=== PATIENT | male | born 1975 | race Caucasian/White ===

== ENCOUNTER → 2019-01-21 07:23 | Outpatient (CLI) | payer OTHER, SELFPAY ==
[2017-12-11 17:38] VITALS: BMI 31.1
[2019-01-21 08:14] LABS: Erythrocyte Sedimentation Rate 7 mm/hr (0-15)
[2019-01-21 08:15] LABS: Absolute Lymphocyte Count 2.55 X10^3/ul (0.83-4.51); Absolute Neutrophil Count 4.6 X10^3/uL (2.0-7.7); Basophil# 0.05 X10^3/uL; Basophil% 0.6 % (0-1); Eosinophil# 0.19 X10^3/uL; Eosinophils% 2.3 % (0-5); Hematocrit 48.1 % (40-54); Hemoglobin 16.2 g/dl (13.0-16.5); Lymphocyte # 2.55 X10^3/ul (4.0); Lymphocyte % 30.8 % (19-41); Mean Corp Hgb Conc 33.7 g/gl (32-36); Mean Corpuscular Hgb 31.1 pg (27.0-32.0); Mean Corpuscular Volume 92.3 fL (80-94); Mean Platelet Vol. 10.6 fl (6.2-12.0); Monocyte# 0.89 X10^3/uL; Monocyte% 10.8 % (0-10); Neutrophil # 4.57 X10^3/uL (2.7-7.7); Neutrophil % 55.3 % (47-70); Platelet Count 221 K/mm3 (150-450); RBC Distribution Width CV 12.7 % (11.6-14.6); RBC Distribution Width SD 42.4 fl (35.1-43.9); Red Blood Count 5.21 M/mm3 (4.6-6.2); White Blood Count 8.3 K/mm3 (4.4-11.0)
[2019-01-21 08:16] LABS: POSITIVE COUNT NO; POSITIVE DIFFERENTIAL NO; POSITIVE MORPHOLOGY NO
[2019-01-21 08:29] LABS: Anion Gap 5 (5-15); BUN 14 mg/dL (7-18); BUN/Creat Ratio 12.6 RATIO (10-20); CRP, High Sensitivity Cardiac 2.75 mg/L; Calcium,Total 8.9 mg/dL (8.5-10.1); Chloride 109 mmol/L (98-107); Creatinine, Serum 1.11 mg/dL (0.70-1.30); EST Glomerular Filtration Rate 77 mL/min (>60); Est Glom Filt Rate - Afr Amer 94 mL/min (>60); Glucose 119 mg/dL (74-106); Potassium 4.5 mmol/L (3.5-5.1); Sodium Level 142 mmol/L (136-145); Uric Acid 6.7 mg/dL (3.5-7.2)
[2019-01-22 15:18] LABS: ANTINUCLEAR ANTIBODIES DIRECT Positive (Negative)
[2019-01-29 16:46] LABS: HLA B27 Negative (.)
== END ==
PROVIDERS: Family Provider Family Medicine; PCP Family Medicine; Referring Provider Podiatrist; Visit Provider Podiatrist
DX: L40.8 Other psoriasis (principal); B35.1 Tinea unguium
CPT/HCPCS: 36415; 80048; 81374; 84550; 85025; 85652; 86038; 86141; 86431

== ENCOUNTER → 2021-12-25 | Outpatient (CLI) | payer OTHER, SELFPAY ==
--- NOTE | 2021-12-25 13:10 | RAD_ITS ---
STUDY: X-RAY - LEFT KNEE REASON FOR EXAM: Male, 46 years old. Pain. TECHNIQUE: 4 view(s) of the knee. COMPARISON: None. FINDINGS: Normal visualized distal femur. Normal visualized proximal tibia and fibula. Normal proximal tibiofibular articulation. Mild medial compartmental arthrosis. Normal lateral femorotibial compartment. Slight lateral tilt and subluxation of the patella with mild arthrosis of the lateral patellofemoral compartment. The soft tissue structures are unremarkable. RAD/Knee 4 or More Views IMPRESSION: Medial and lateral patellofemoral compartmental arthrosis as described. No acute abnormality or erosive changes. Electronically Signed: Dean Davies MD at 13:44 EDT ,
--- NOTE | 2021-12-25 13:10 | RAD_ITS ---
INDICATION: PAIN EXAMINATION/TECHNIQUE: X-RAY - RIGHT XR Knee Complete 4 Views or More 4 VIEWS COMPARISON: None. FINDINGS: No acute fracture or subluxation. Joint spaces are intact. No significant degenerative changes. Soft tissues are unremarkable. No significant joint effusion. RAD/Knee 4 or More Views IMPRESSION: No acute findings in the right knee. Electronically Signed: Williams Posada, at 15:55 EDT ,
--- NOTE | 2021-12-25 13:11 | RAD_ITS ---
STUDY: X-RAY CHEST REASON FOR EXAM: Male, 46 years old. Cough. TECHNIQUE: Frontal and lateral views of the chest. COMPARISON: None. FINDINGS: Linear opacities at both bases with no focal consolidation. Scattered healed parenchymal granulomatous calcifications. There is no demonstrated pleural abnormality. Normal size heart. Normal mediastinum and aundrea. Normal visualized pulmonary arteries. Normal visualized aortic arch and descending thoracic aorta. Normal visualized thoracic spine. Normal visualized ribs, clavicles, and shoulders. There is no demonstrated abnormality of the visualized soft tissue structures of the upper abdomen. RAD/Chest PA and Lateral IMPRESSION: No active or acute cardiopulmonary disease. Electronically Signed: Dean Davies MD at 13:43 EDT ,
== END | disposition home or self-care (01) ==
PROVIDERS: PCP Internal Medicine; Referring Provider Internal Medicine; Visit Provider Internal Medicine
DX: R05.9 Cough, unspecified (principal); M25.561 Pain in right knee; M25.562 Pain in left knee; S83.012A Lateral subluxation of left patella, initial encounter
CPT/HCPCS: 71046; 73564

== ENCOUNTER → 2023-01-25 | Outpatient (CLI) | payer OTHER, SELFPAY ==
--- NOTE | 2023-01-25 07:43 | US_ITS ---
STUDY: ABDOMINAL ULTRASOUND - RIGHT UPPER QUADRANT; ELASTOGRAPHY REASON FOR VISIT: Male, 47 years old. TECHNIQUE: Ultrasound evaluation of the right upper quadrant was performed with real-time and static ramirez-scale imaging. Point quantification shear wave elastography was performed (Leap). TECHNICAL QUALITY: Adequate. COMPARISON: None. FINDINGS: Liver: The liver is enlarged and measures 18.6 cm. There is increased echogenicity consistent with fatty infiltration. Focal fatty sparing is seen in the region of the gallbladder fossa. The bile ducts are within normal limits. There is hepatic color flow. The direction of portal flow is hepatopetal. There is no demonstrated mass lesion. Median liver stiffness measured 14.5 kPa. Gallbladder: Normal distended gallbladder. The gallbladder wall measures 2.6 mm. There is a negative sonographic Bran''s sign. There is no pericholecystic fluid. There are no gallstones. Common Bile Duct (C.B.D.): The common bile duct measures 3.4 mm. Pancreas: There is normal echogenicity of the visualized pancreas. There is no demonstrated pancreatic mass or cyst. Right Kidney: Normal size of the right kidney. The right kidney measures 11.6 cm x 5.8 cm x 5.5 cm. Normal renal cortex. The right cortex measures 1.8 cm. There is no demonstrated renal mass or cyst. There is no right hydronephrosis. US/ABD Limited w/ Elastography IMPRESSION: 1. Liver stiffness measures 14.5 kPa compatible with F3-F4 (Moderate to severe liver fibrosis) Metavir score. Electronically Signed: Raymond Dorantes MD at 9:48 EDT ,
== END | disposition home or self-care (01) ==
PROVIDERS: PCP Internal Medicine; Visit Provider Internal Medicine
DX: K76.0 Fatty (change of) liver, not elsewhere classified (principal)
CPT/HCPCS: 76705; 76981

== ENCOUNTER → 2023-04-03 | Outpatient (CLI) | payer OTHER, SELFPAY ==
--- NOTE | 2023-04-04 05:57 | PFTCOMP ---
COMPLETE PULMONARY FUNCTION TEST INTERPRETATION Brief HPI: Patient is a 48-year-old male, currently under the care of Dr. Irvin, who presents to [facility] for complete pulmonary function tests secondary to diagnosis of abnormal PFT. Respiratory therapist reports good effort and reproducible results. Interpretation: Forced expiration spirometry shows no large airways obstructive ventilatory defect with an FEV1 of 60% predicted. There is no significant bronchodilator response by strict ATS criteria. Spirograms are of good quality and plateau normally. The respiratory flow volume loop shows a normal pattern. Lung volumes by body plethysmography show a decreased total lung capacity at 4.72 L, 59% predicted. All other lung volumes are reduced symmetrically. Diffusion capacity by carbon monoxide is decreased at 72% predicted. The airway resistance is elevated. No previous pulmonary function tests were available for review. Impression: Moderate restrictive ventilatory defect with a symmetric reduction diffusion capacity. Consider chest imaging if not done previously
== END | disposition home or self-care (01) ==
PROVIDERS: PCP Internal Medicine; Referring Provider Internal Medicine; Visit Provider Internal Medicine
DX: R94.2 Abnormal results of pulmonary function studies (principal)
CPT/HCPCS: 94060; 94726; 94729

== ENCOUNTER → 2023-12-18 | Outpatient (CLI) | payer BC, SELFPAY ==
--- NOTE | 2023-12-18 17:02 | CT_ITS ---
INDICATION: abnormal PFTS -- abnormal PFTS EXAMINATION: CT CHEST WITH CONTRAST - CT Chest W/ Contrast Injection TECHNIQUE: Helically acquired images were obtained of the chest following IV contrast. A radiation dose optimization technique was used for this scan. IV Contrast dosage and agent: 100 cc of Isovue-370 RADIATION DOSAGE (If Supplied By Facility): CTDIvol = ( 15.86 ) mGy, DLP = ( 701.69 ) mGycm COMPARISON: No relevant prior comparison study available FINDINGS: LUNGS, PLEURA AND LARGE AIRWAYS: The lungs are essentially unremarkable. No masses, consolidation, or edema. No pleural effusion or thickening. No pneumothorax. THYROID: No thyroid lesions. HEART AND PERICARDIUM: Heart size is normal. No pericardial effusion. No evidence of coronary calcifications. VESSELS: Thoracic aorta is not dilated. No aortic dissection. No obvious central pulmonary embolism although this study was not performed with the pulmonary embolism protocol. MEDIASTINUM AND CHAYO: No mediastinal or hilar adenopathy. Esophagus is unremarkable. No hiatal hernia. UPPER ABDOMEN: Probable hepatic steatosis difficult to evaluate due to arterial phase of scanning. BONES: No suspicious lytic or blastic abnormality. CT/Chest WITH Contrast IMPRESSION: No mass, adenopathy or focal acute pulmonary infiltrate.. Electronically Signed: Tomasz Sadler MD at 9:52 EDT ,
[2023-12-18 17:24] LABS: CREATININE FINGERSTICK 1.4 mg/dL (0.70-1.30)
== END | disposition home or self-care (01) ==
PROVIDERS: PCP Internal Medicine; Referring Provider Internal Medicine; Visit Provider Internal Medicine
DX: R94.2 Abnormal results of pulmonary function studies (principal)
CPT/HCPCS: 71260; Q9967

== ENCOUNTER 2024-04-14 06:37 | Day surgery (SDC) | payer OTHER, SELFPAY ==
[2024-04-14] VITALS (8 sets, daily range): BP systolic 105–132; BP diastolic 62–88; PULSE 61–75; RESP 18–20; TEMP 36.1–36.6; O2SAT 93–100; BMI 30.7
--- NOTE | 2024-04-14 | GASB_PTH ---
PATIENT: JESI GAVIRIA LOC: EN U#:[id number] AGE/SX: 49/M ROOM: RE04/14/[address]: Dr. Hoang Sánchez MD : 1975 BED: DIS: 04/14/2024 SPEC #: [id number] RECD: 04/14/24 12:24 STATUS: VITA FRITZ #: [id number] MICHAEL: 04/14/24 00:[address]: Hoang Sánchez DEPT: SURGICAL PATHOLOGY RECD BY: Joel Minaya ENTERED: 04/14/24 12:24 SP TYPE: Gastric Bx OTHR DR: Dr. Paula Irvin DO Tissues: A - Gastric mucous membrane B - Gastric mucous membrane C - Transverse colon D - Ascending colon Procedures: Special Stain Group I Surgery Specimen Level IV Alcian Blue/PAS (control) HEADER OPERATION: EGD with biopsies, colonoscopy with polypectomy PRE-OP DIAGNOSIS: GERD, blood in stool TISSUE SUBMITTED: A- Antrum, B- Gastroesophageal junction biopsy, C- Transverse colon polyp, D- Ascending colon polyp MICROSCOPIC DIAGNOSIS A. Antrum, biopsy: Mild gastritis. See microscopic description and comment. B. Gastroesophageal junction, biopsy: Fragments of gastroesophageal mucosa with chronic inflammation and changes consistent with gastroesophageal reflux disease. Intestinal metaplasia (goblet cell metaplasia) not identified. See comment. C. Transverse colon polyp, polypectomy: Fragments of tubulovillous adenoma. D. Ascending colon polyp, polypectomy: Fragments of tubular adenoma. /mr 04/15/2024 COMMENT A. The results of immunohistochemistry for Helicobacter pylori will be reported separately ([id number]). B. Alcian blue/PAS stain with matched control is used in the evaluation of the specimen. MICROSCOPIC DESCRIPTION Slides are reviewed. A. The specimen shows fragments of gastric mucosa with chronic inflammatory cell infiltrates in the lamina propria consisting of lymphocytes and plasma cells, consistent with mild chronic gastritis. GROSS DESCRIPTION A. Received in fixative is one container labeled with the patient's name and designated Antrum biopsy. The specimen consists of two irregular fragments of light curran soft tissue that measuring in aggregate 0.4 x 0.4 x 0.1 cm. The specimen is totally submitted in one cassette. B. Received in fixative is one container labeled with the patient's name and designated GE junction biopsy. The specimen consists of two irregular fragments of light curran soft tissue that in aggregate measure 0.6 x 0.3 x 0.1 cm. The specimen is totally submitted in one cassette. C. Received in fixative is one container labeled with the patient's name and designated Transverse colon polyp. The specimen consists of multiple curran-pink polyps that in aggregate measure 2.0 x 1.5 x 0.4 cm. The specimen is totally submitted in one cassette. D. Received in fixative is one container labeled with the patient's name and designated Ascending colon polyp. The specimen consists of multiple irregular fragments of light curran soft tissue that in aggregate measure 0.8 x 0.4 x 0.1 cm. The specimen is totally submitted in one cassette. SJ.mr 04/14/2024 TC:1 CPT:[id number]
--- NOTE | 2024-04-14 06:54 | PCM.HP.BLA ---
History and Physical Date of Admission: 04/14/24 Intake Vital Signs 05/02/2315:56 02/16/2414:03 Height 6 ft 2 in 6 ft 2 in Weight: 247 lb 244 lb BMI 31.7 31.3 BP 132/91 H 132/84 H Blood Pressure Location Lt brachial Rt brachial Position Sitting Sitting Respiration 16 17 Pulse 95 74 Pulse Source Monitor Monitor Temp 99.2 F H Pulse Oximetry (%) 93 96 Oxygen Delivery Method room air room air Intake Visit Reasons: UMBILICAL HERNIA Chief Complaint: hernia,colonoscopy, egd Is patient in pain?: No Allergies No Known Allergies Allergy (Verified 02/17/24 14:06) Medications ?Medication ?Instructions ?Recorded ?Confirmed ?Type cholecalciferol (vitamin D3) 125 125 mcg PO DAILY 02/17/24 02/17/24 History mcg (5,000 unit) capsule omeprazole 20 mg capsule,delayed 20 mg PO DAILY 02/17/24 02/17/24 History release semaglutide 3 mg tablet (Rybelsus) 3 mg PO DAILY 02/17/24 02/17/24 History PFSH Medical History (Updated 02/17/24 @ 23:[address] Hoang Sánchez MD) Hemochromatosis carrier Elevated ferritin level Squamous cell skin cancer Vitamin D deficiency GERD (gastroesophageal reflux disease) Liver fibrosis Fatty liver Arthritis Bilateral knee pain Plantar fasciitis Pre-diabetes Allergic rhinitis Basal cell carcinoma of head Basal cell carcinoma of back Mitral valve prolapse Seasonal allergies Surgical History History of tympanostomy tube placement Hx of tonsillectomy Family History Father CAD (coronary artery disease) Blood disorder DiabetesSister Thyroid disorderBrother Cancer MelanomaMother Atrial fibrillation Hyperlipidemia Hypothyroid Hypercholesteremia OsteoarthritisGrandmother CVA (cerebral vascular accident) CAD (coronary artery disease)Other Heart disease Social History Smoking Status: Never smoker alcohol intake: current alcohol intake frequency: holidays/special occasions only substance use type: does not use caffeine: Yes Type: carbonated beverages and coffee HPI HPI HPI: Patient is a 48-year-old male here for blood in his stool as well as increased GERD. The patient was originally sent here for umbilical hernia. He reports that his umbilical hernia is not causing him any pain. He also says he is having blood in his stool that is intermittent. He is not having any pain with bowel movements. He reports the blood is bright. He has never had a colonoscopy. He also says his GERD is becoming worse. He does not take his PPI regularly. ROS General General: Yes fatigue; No weight change, appetite, colon cancer, breast cancer or weakness HEENT HEENT: No difficulty swallowing, eye injury, eye surgery, swollen glands or hoarseness Endo Endocrine: Yes diabetes mellitus; No thyroid disease, thyroid cancer, Hair loss, heat intolerance or cold intolerance Skin Skin: No rash or changing moles Musc Musculoskeletal: No back problems, arthritis, rheumatoid arthritis, gout or joint pain Cardio Cardiovascular: No murmur, pacemaker, heart disease, atrial fibrillation, high blood pressure, heart attack, heart stent, palpitations, shortness of breat with exertion or chest pain Psych Psychiatric: No depression, anxiety or hearing voices Resp Respiratory: Yes shortness of breath, No sleep apnea, Yes cough, No COPD, No asthma, No emphysema and No wheezing Gastro Gastrointestinal: Yes abdominal pain, No nausea or vomiting, Yes diarrhea, Yes constipation, Yes blood in stool, Yes acid reflux, No hemorrhoids, No ulcers, No gallbladder problem and No black,tarry stools Tc Hematologic: No blood thinners, No blood disorders, No bleeding, No anemia and No blood clots Neuro Neurologic: No system reviewed and no additional complaints, except as documented, No as per HPI, No abnormal gait, No abnormal hearing, No abnormal movements, No abnormal speech, No behavioral changes, No burning sensations, No confusion, No convulsions, No disequilibrium, No dizziness, No localized weakness, No frequent falls, No headache(s), No lack of coordination, No loss of vision, No memory loss, No numbness, No other visual disturbances, No radicular pain, No restless legs, No sensory deficit, No syncope, No tingling, No tremor(s), No weakness and No other Exam Const General: cooperative and comfortable Orientation: alert and oriented x3 HENMT Head: normal to inspection Neck Neck: normal visual inspection and full ROM Chest Chest palpation & inspection: normal inspection of the chest Resp Effort & Inspection: normal respiratory effort Auscultation: clear to auscultation bilaterally Cardio Rate: regular rate Rhythm: regular rhythm GI Inspection: non-distended Palpation: soft and nontender Skin General: no rashes or lesions noted Neuro General: patient alert and patient oriented x3 Extrem General: full ROM Psych Appearance: grossly normal Mental Status: mental status grossly normal Assessment and Plan Assessment and Plan (1) GERD (gastroesophageal reflux disease): Status: Acute (2) Blood in the stool: Status: Acute Orders: Orders Colonoscopy 04/14/24 EGD 04/14/24 Plan The patient is having blood in his stool and he is having worsening acid reflux. I did offer an EGD and colonoscopy to evaluate. He was planning on having both of the scopes done in [facility] but his insurance did not approve. I discussed performing EGD to evaluate for his cough in the morning and at discharge she is having at night. He also reports that the blood in his stool has been bright red. He has never had a colonoscopy. I explained endoscopy in detail to the patient. I explained the risks including but not limited to stroke or heart attack with anesthesia, perforation of the GI tract, bleeding, infection. I explained that any of these could necessitate further emergency surgery. The patient understands and all questions were answered sufficiently. The patient wishes to proceed with procedure. Patient is reporting that his umbilical hernia is not bothering him and he would like to address that after the other issues. Hoang Sánchez MD Pager: [facility] [address] [place] [address], [address] [place] [address] Office: I have examined the patient and the H&P has been reviewed. There are no clinical changes since date of exam.
[2024-04-14] MEDS: Lactated Ringers 1,000 ML 15 ML IV (07:01)
--- NOTE | 2024-04-14 07:15 | PRE.ANES_ITS ---
ASA Classification* ASA Classification ASA Classification: 2 Assessment & Plan Anesthesia* Anesthesia Assessment Anesthesia Assessment: Discussed sedation and/or anesthesia options, risks, benefits, and alternatives with patient/parents/legal guardian/POA. Questions invited. The patient/parents/legal guardian/POA seems to understand and agrees to proceed with anesthesia plan. Reviewed the physical assessment, medical history, allergy history and patient home medications list prior to surgery/procedure/anesthetic and documented any changes. Performed airway and anesthesia risk assessments. Anesthesia Type Anesthesia Type: MAC (see written pre anesthesia record for full assessment) Anesthesia Focused Assessment* Temperature: 97.8 F Pulse Rate: 72 Blood Pressure: 130/88 Respiratory Rate: 18 Pulse Ox: 100 Airway Assessment Mouth opens: >3 cm Mallampati Score: II Focused Labs Anesthesia Preop lab: CBC WBC 8.3 K/mm3 (4.4-11.0) 01/21/19 07:35 RBC 5.21 M/mm3 (4.6-6.2) 01/21/19 07:35 Hgb 16.2 g/dl (13.0-16.5) 01/21/19 07:35 Hct 48.1 % (40-54) 01/21/19 07:35 Plt Count 221 K/mm3 (150-450) 01/21/19 07:35 CHEMISTRY Potassium 4.5 mmol/L (3.5-5.1) 01/21/19 07:35 Sodium 142 mmol/L (136-145) 01/21/19 07:35 BUN 14 mg/dL (7-18) 01/21/19 07:35 Creatinine 1.11 mg/dL (0.70-1.30) 01/21/19 07:35 Glucose 119 mg/dL (74-106) H 01/21/19 07:35 TSH 0.84 uIU/mL (0.358-3.74) 05/07/12 09:35 COAG Pre-Assessment Diagnosis/Proposed Procedure Planned Operative Procedure(s): EGD/CSCOPE Anesthesia History Anesthesia History - client technical specialist: Anesthesia History - client technical specialist Hx Hospitalization No 04/10/24 10:36 Any Problems With Anesthesia No 04/10/24 10:36 Cholinesterase deficiency No 04/10/24 10:36 You/Your Family Experience No 04/10/24 10:36 fever (hyperthermia) with Relationship Recent Exposure to Contagious No 04/14/24 07:03 Disease Does patient have nerve No 04/10/24 10:36 stimulator Patient instructed to have device shut off --Does patient have Pacemaker No 04/14/24 07:03 or ICD? When Was Last Pacemaker Check QUESTION #4 FULL TEXT: You/Your Family Experience fever (hyperthermia) with Anesthesia Last Oral Intake Last Oral intake: Last Oral Intake NPO since 00:00 04/14/24 07:03 Meds taken in AM with sips of No 04/14/24 07:03 water? Meds patient instructed to take am of surgery PONV PONV - client technical specialist: PONV - client technical specialist Female No 04/10/24 10:36 HX of Motion Sickness No 04/10/24 10:36 HX of N/V After Surgery No 04/10/24 10:36 Non-Smoker Yes 04/10/24 10:36 Duration of Surgery greater No 04/10/24 10:36 than 60 minutes Number of Risk Factors 1 04/10/24 10:36 PONV Score Low Risk 04/10/24 10:36 Height & Weight Height & Weight: Anesthesia: Height & Weight Height 6 ft 2 in 04/14/24 07:03 Weight: 108.409 kg 04/14/24 07:03 Body Mass Index (BMI) 30.7 04/14/24 07:03 Respiratory Assessment Respiratory Assessment - client technical specialist: Respiratory Tract Infection Hx - client technical specialist Hx Respiratory Tract Infection No 04/10/24 10:36 STOP Sleep Apnea STOP Sleep Apnea - client technical specialist: STOP Sleep Apnea - client technical specialist Hx Hypertension No 04/10/24 10:36 Hx Sleep Apnea No 04/10/24 10:36 CPAP BIPAP Do you snore loudly (louder Yes 04/10/24 10:36 than talking or can be heard Do you often feel tired/ Yes 04/10/24 10:36 fatigued/ sleepy during daytime? Has anyone observed you stop No 04/10/24 10:36 breathing during sleep? STOP Results Positive 04/10/24 10:36 QUESTION #5 FULL TEXT : Do you snore loudly (louder than talking or can be heard through closed doors)? Tobacco Use History Tobacco Use History - client technical specialist: Tobacco Use History - client technical specialist Tobacco Use Smoking Status Never smoker 04/10/24 10:36 Hx Tobacco Use No 04/10/24 10:36 Years Smoking Packs Smoked per Day Smoking Cessation Date was within the last 15 years Hx Smoking Cessation Date Hx Smoking Cessation Counseling Hematologic Medial History Hematologic Hx - client technical specialist: Hematologic Medical Hx - manager telemetry Hx of Blood Transfusion No 04/10/24 10:36 Hx of Transfusion in last 3 No 04/10/24 10:36 Months Date of Last Transfusion (if within last 3 months) Ever experience any problems No 04/10/24 10:36 with transfusion(s)? Specify any problems Hx of Preganancy in last 3 N/A 04/10/24 10:36 Months Nurse Filling Out Transfusion DSCHRIBER 04/10/24 10:36 & Questions: Date: 04/10/24 04/10/24 10:36 Time: 10:37 04/10/24 10:36 Patient unable to answer at this time (ie. confused, unrespo /Reproduction History /Reproductive History - client technical specialist: /Reproductive Hx- client technical specialist Hx Now No 04/10/24 10:36 Gestational Age (in weeks): EDC: Hx Hx Para Hx Section SAB No 04/10/24 10:36 Active Medications Active Medications: Current Medications Generic Name Dose Route Start Last Admin Trade Name Freq PRN Reason Stop Dose Admin Lactated Ringer's 1,000 mls @ 15 mls/hr 04/14/24 06:45 04/14/24 07:01 IV 15 mls/hr .Q48H LESLIE Administration PFSH Medical History Wears contact lenses Alcohol use Low iron History of IBS Non-smoker History of pain when walking History of edema History of stress test Hemochromatosis carrier Elevated ferritin level Squamous cell skin cancer Vitamin D deficiency GERD (gastroesophageal reflux disease) Liver fibrosis Fatty liver Arthritis Pre-diabetes Allergic rhinitis Basal cell carcinoma of head Basal cell carcinoma of back Mitral valve prolapse Home Medications ?Medication ?Instructions ?Recorded ?Last Taken ?Type omeprazole 20 mg capsule,delayed 20 mg PO DAILY 02/17/24 Unknown History release semaglutide 3 mg tablet (Rybelsus) 3 mg PO DAILY 02/17/24 Unknown History Allergy/AdvReac Type Severity Reaction Status Date / Time No Known Allergies Allergy Verified 04/14/24 07:00 Family History Father CAD (coronary artery disease) Blood disorder Diabetes Sister Thyroid disorder Brother Cancer Melanoma Mother Atrial fibrillation Hyperlipidemia Hypothyroid Hypercholesteremia Osteoarthritis Grandmother CVA (cerebral vascular accident) CAD (coronary artery disease) Other Heart disease Surgical History History of tympanostomy tube placement Hx of tonsillectomy Social History Smoking Status: Never smoker alcohol intake: current alcohol intake frequency: holidays/special occasions only substance use type: does not use caffeine: Yes Type: carbonated beverages and coffee Review of Systems (Anesthesia) ROS Narrative System reviewed and no additional complaints, except as documented.
--- NOTE | 2024-04-14 07:30 | IMM_PTH ---
PATIENT: JESI GAVIRIA LOC: EN U#:[id number] AGE/SX: 49/M ROOM: RE04/14/[address]: Dr. Hoang Sánchez MD : 1975 BED: DIS: 04/14/2024 SPEC #: [id number] RECD: 04/14/24 12:19 STATUS: VITA REQ #: [id number] MICHAEL: 04/14/24 07:[address]: Hoang Sánchez DEPT: IMMUNOHISTOCHEMISTRY RECD BY: Dave Pineda ENTERED: 04/14/24 12:19 SP TYPE: IMMUNO OTHR DR: Dr. Paula Irvin DO Tissues: A - Gastric mucous membrane Procedures: H Pylori (initial) PHYSICIAN & INSTITUTION [place] [id number] SPECIMEN INFORMATION: Tissue Source: A- Antrum biopsy Clinical Info: GERD, blood in stool Specimen Number: [id number] CPT code: 85750 METHODOLOGY: Deparaffinized sections of prefer/formalin-fixed tissue or PAP/DQ stained slides are incubated with monoclonal/polyclonal antibodies/oligonucleotide probes. Localization is made via biotin free immunoperoxidase method. Appropriate controls are performed and reacted as expected. Results on target cell population are indicated in the following table: RESULTS: ANTIBODY / CLONE RESULT Block A H Pylori (polyclonal) negative These tests were developed and their performance characteristics determined by [facility]. They may not have been cleared or approved by the U.S. Food and Drug Administration. The FDA has determined that such clearance or approval is not necessary. The above immunohistochemical/dualISH markers are ordered and reviewed by the Pathologist. INTERPRETATION: A. Antrum, biopsy: Negative for Helicobacter pylori organisms. 04/24/2024
--- NOTE | 2024-04-14 08:08 | PCM.POST.ANE ---
Anesthesia: Postop Eval I Current Vital Signs Temperature: 97 F Pulse Rate: 73 Blood Pressure: 109/73 Respiratory Rate: 20 Pulse Ox: 94 Assessment Airway patent: Yes Spontaneous unlabored respirations: Yes nausea: No Vomiting: No Anesthesia Complication: No Fluid Hydration Crystalloid volume administer (ml): 500 Total IV fluid infused: 500 Progress Note Anesthesia document: Postop Eval 1 completed: Yes
--- NOTE | 2024-04-14 08:12 | OP.EGD_ITS ---
Patient Name: Ravin Pearce Procedure Date: 04/14/2024 7:37 AM Date of : 1975 Age: 49 Procedure: Upper GI endoscopy Indications: Heartburn Providers: Hoang Sánchez MD Medicines: Propofol per Anesthesia Patient Profile: This is a 49 year old male. Refer to note in patient chart for documentation of history and physical. Complications: No immediate complications. Estimated blood loss: Minimal. Procedure: Pre-Anesthesia Assessment: - Prior to the procedure, a History and Physical was performed, and patient medications and allergies were reviewed. The patient's tolerance of previous anesthesia was also reviewed. The risks and benefits of the procedure and the sedation options and risks were discussed with the patient. All questions were answered, and informed consent was obtained. Prior Anticoagulants: The patient has taken no anticoagulant or antiplatelet agents. After reviewing the risks and benefits, the patient was deemed in satisfactory condition to undergo the procedure. After obtaining informed consent, the endoscope was passed under direct vision. Throughout the procedure, the patient's blood pressure, pulse, and oxygen saturations were monitored continuously. The gastroscope was introduced through the mouth, and advanced to the second part of duodenum. The upper GI endoscopy was accomplished without difficulty. The patient tolerated the procedure well. Scope In: 7:46:02 AM Scope Out: 7:49:45 AM Total Procedure Duration Time 0 hours 3 minutes 43 seconds Findings: Non-severe esophagitis with no bleeding was found at the gastroesophageal junction. Biopsies were taken with a cold forceps for histology. The stomach was normal. Biopsies were taken with a cold forceps in the gastric antrum for Helicobacter pylori testing. The examined duodenum was normal. Impression: - Non-severe reflux esophagitis with no bleeding. Biopsied. - Normal stomach. - Normal examined duodenum. - Biopsies were taken with a cold forceps for Helicobacter pylori testing. Recommendation: - Discharge patient to home. - Resume previous diet. - Continue present medications. - Await pathology results. Procedure Code(s): --- Professional --- 17814, Esophagogastroduodenoscopy, flexible, transoral; with biopsy, single or multiple Diagnosis Code(s): --- Professional --- K21.00, Gastro-esophageal reflux disease with esophagitis, without bleeding R12, Heartburn CPT copyright 2021 [employer]. All rights reserved. The codes documented in this report are preliminary and upon medical insurance coder review may be revised to meet current compliance requirements. Hoang Sánchez MD 04/14/2024 8:12:06 AM This report has been signed electronically. Number of Addenda: 0 Note Initiated On: 04/14/2024 7:37 AM
--- NOTE | 2024-04-14 08:12 | OP.CCLET_ITS ---
04/14/2024 Paula Irvin Re : Upper GI endoscopy procedure for Ravin Irvin This procedure was performed on Sunday, April 14, 2024. My impressions and recommendations are as follows: Impressions : - Non-severe reflux esophagitis with no bleeding. Biopsied. - Normal stomach. - Normal examined duodenum. - Biopsies were taken with a cold forceps for Helicobacter pylori testing. Recommendations : - Discharge patient to home. - Resume previous diet. - Continue present medications. - Await pathology results. My findings are described in the full procedure note, which is enclosed. If I can be of further assistance, please feel free to contact me at Doctor phone number(s): , Work: . Sincerely, Hoang Sánchez MD 04/14/2024 8:12:06 AM This report has been signed electronically.
--- NOTE | 2024-04-14 08:14 | OP.COLON_ITS ---
Patient Name: Ravin Pearce Procedure Date: 04/14/2024 7:52 AM Date of : 1975 Age: 49 Procedure: Colonoscopy Indications: Rectal bleeding Providers: Hoang Sánchez MD Medicines: Propofol per Anesthesia Patient Profile: This is a 49 year old male. Refer to note in patient chart for documentation of history and physical. Last Colonoscopy: none. The patient's first colonoscopy is today. Complications: No immediate complications. Estimated blood loss: Minimal. Procedure: Pre-Anesthesia Assessment: - Prior to the procedure, a History and Physical was performed, and patient medications and allergies were reviewed. The patient's tolerance of previous anesthesia was also reviewed. The risks and benefits of the procedure and the sedation options and risks were discussed with the patient. All questions were answered, and informed consent was obtained. Prior Anticoagulants: The patient has taken no anticoagulant or antiplatelet agents. After reviewing the risks and benefits, the patient was deemed in satisfactory condition to undergo the procedure. After I obtained informed consent, the scope was passed under direct vision. Throughout the procedure, the patient's blood pressure, pulse, and oxygen saturations were monitored continuously. The Colonoscope was introduced through the anus and advanced to the cecum, identified by appendiceal orifice and ileocecal valve. The colonoscopy was performed without difficulty. The patient tolerated the procedure well. The quality of the bowel preparation was good. The ileocecal valve, appendiceal orifice, and rectum were photographed. Scope In: 7:53:09 AM Scope Withdrawal Time 0 hours 7 minutes 25 seconds Scope Out: 8:06:06 AM Total Procedure Duration Time 0 hours 12 minutes 57 seconds Findings: Two polyps were found in the transverse colon and ascending colon. The polyps were medium in size. These polyps were removed with a hot snare. Resection and retrieval were complete. The exam was otherwise without abnormality on direct and retroflexion views. Impression: - Two medium polyps in the transverse colon and in the ascending colon, removed with a hot snare. Resected and retrieved. - The examination was otherwise normal on direct and retroflexion views. Recommendation: - Discharge patient to home. - Resume previous diet. - Continue present medications. - Await pathology results. - Repeat colonoscopy in 5 years for surveillance based on pathology results. Procedure Code(s): --- Professional --- 94846, Colonoscopy, flexible; with removal of tumor(s), polyp(s), or other lesion(s) by snare technique Diagnosis Code(s): --- Professional --- D12.3, Benign neoplasm of transverse colon (hepatic flexure or splenic flexure) D12.2, Benign neoplasm of ascending colon K62.5, Hemorrhage of anus and rectum CPT copyright 2021 [employer]. All rights reserved. The codes documented in this report are preliminary and upon continuous linter drier operator review may be revised to meet current compliance requirements. Hoang Sánchez MD 04/14/2024 8:13:47 AM This report has been signed electronically. Number of Addenda: 0 Note Initiated On: 04/14/2024 7:52 AM
--- NOTE | 2024-04-14 08:14 | OP.CCLET_ITS ---
04/14/2024 Paula Irvin Re : Colonoscopy procedure for Ravin Irvin This procedure was performed on Sunday, April 14, 2024. My impressions and recommendations are as follows: Impressions : - Two medium polyps in the transverse colon and in the ascending colon, removed with a hot snare. Resected and retrieved. - The examination was otherwise normal on direct and retroflexion views. Recommendations : - Discharge patient to home. - Resume previous diet. - Continue present medications. - Await pathology results. - Repeat colonoscopy in 5 years for surveillance based on pathology results. My findings are described in the full procedure note, which is enclosed. If I can be of further assistance, please feel free to contact me at Doctor phone number(s): , Work: . Sincerely, Hoang Sánchez MD 04/14/2024 8:13:47 AM This report has been signed electronically.
--- NOTE | 2024-04-14 08:52 | POSTOPAN2_ITS ---
Anesthesia Postop Eval I Sum Postop Eval Completion status Anesthesia document: Postop Eval 1 completed: Yes Anesthesia Postop Eval I Summary Anesthesia Postop Eval I Summary: Anesthesia Postop Eval I: Assessment Summary Airway patent Yes 04/14/24 08:08 EARTH MOVING MACHINE OPERATOR.CSIR Spontaneous unlabored Yes 04/14/24 08:08 EARTH MOVING MACHINE OPERATOR.CSIR respirations Mental status nausea No 04/14/24 08:08 EARTH MOVING MACHINE OPERATOR.CSIR Vomiting No 04/14/24 08:08 EARTH MOVING MACHINE OPERATOR.CSIR Anesthesia Postop Eval I: Fluid Summary Crystalloid volume administer 500 04/14/24 08:08 EARTH MOVING MACHINE OPERATOR.CSIR (ml) Colloids volume administered ( ml) Blood Product volume administered (ml) Total IV fluid infused 500 04/14/24 08:08 EARTH MOVING MACHINE OPERATOR.CSIR Anesthesia Postop Eval I: Summary Notes Anesthesia Complication No 04/14/24 08:08 EARTH MOVING MACHINE OPERATOR.CSIR Anesthesia Complication Comment: Post-operative progress note Anesthesia: Postop Eval II Evaluation Mental status: Awake Pain Level: 0 nausea: No Vomiting: No
--- NOTE | 2024-04-14 08:52 | PCM.POSTANE2 ---
Anesthesia Postop Eval I Sum Postop Eval Completion status Anesthesia document: Postop Eval 1 completed: Yes Anesthesia Postop Eval I Summary Anesthesia Postop Eval I Summary: Anesthesia Postop Eval I: Assessment Summary Airway patent Yes 04/14/24 08:08 AUTOMATIC SPREADER OPERATOR.CSIR Spontaneous unlabored Yes 04/14/24 08:08 AUTOMATIC SPREADER OPERATOR.CSIR respirations Mental status nausea No 04/14/24 08:08 AUTOMATIC SPREADER OPERATOR.CSIR Vomiting No 04/14/24 08:08 AUTOMATIC SPREADER OPERATOR.CSIR Anesthesia Postop Eval I: Fluid Summary Crystalloid volume administer 500 04/14/24 08:08 AUTOMATIC SPREADER OPERATOR.CSIR (ml) Colloids volume administered ( ml) Blood Product volume administered (ml) Total IV fluid infused 500 04/14/24 08:08 AUTOMATIC SPREADER OPERATOR.CSIR Anesthesia Postop Eval I: Summary Notes Anesthesia Complication No 04/14/24 08:08 AUTOMATIC SPREADER OPERATOR.CSIR Anesthesia Complication Comment: Post-operative progress note Anesthesia: Postop Eval II Evaluation Mental status: Awake Pain Level: 0 nausea: No Vomiting: No
== END 2024-04-14 08:51 | disposition home or self-care (01) ==
LOC: EN 06:42 → AC 06:52
PROVIDERS: PCP Internal Medicine; Referring Provider Internal Medicine; Visit Provider Surgery
PROC: 0DJD8ZZ Inspection of Lower Intestinal Tract, Via Natural or Artificial Opening Endoscopic (ICD-10-PCS; CPT 45378; principal; 2024-04-14 07:25)
DX: D12.2 Benign neoplasm of ascending colon (principal); D12.3 Benign neoplasm of transverse colon; K42.9 Umbilical hernia without obstruction or gangrene; K21.00 Gastro-esophageal reflux disease with esophagitis, without bleeding; K62.5 Hemorrhage of anus and rectum; K44.9 Diaphragmatic hernia without obstruction or gangrene; Z79.899 Other long term (current) drug therapy
CPT/HCPCS: 43239; 45385; 88305; 88312; 88342; J7120

== ENCOUNTER 2024-08-12 10:57 | Day surgery (SDC) | payer OTHER, SELFPAY ==
--- NOTE | 2024-08-04 07:53 | EKG12_ITS ---
Test Reason : PRE OP Blood Pressure : */* mmHG Vent. Rate : 68 BPM Atrial Rate : 68 BPM P-R Int : 156 ms QRS Dur : 80 ms QT Int : 370 ms P-R-T Axes : 13 -6 0 degrees QTcB Int : 393 ms Normal sinus rhythm Normal ECG Confirmed by Rupesh Cuevas ([id number]), tape editor KRISTEN VÁSQUEZ ([id number]) on 08/05/2024 5:50:34 AM Referred By: Hoang Sánchez Confirmed By: Rupesh Cuevas
[2024-08-04 08:31] LABS: Hematocrit 50.8 % (40-54); Hemoglobin 16.7 g/dL (13.0-16.5); Mean Corp Hgb Conc 32.9 g/dL (32-36); Mean Corpuscular Hgb 30.5 pg (27.0-32.0); Mean Corpuscular Volume 92.7 fL (80-94); Mean Platelet Vol. 9.8 fl (6.2-12.0); Platelet Count 222 K/mm3 (150-450); RBC Distribution Width CV 12.7 % (11.6-14.6); RBC Distribution Width SD 43.3 fl (35.1-43.9); Red Blood Count 5.48 M/mm3 (4.6-6.2); White Blood Count 8.4 K/mm3 (4.4-11.0)
[2024-08-12] VITALS (9 sets, daily range): BP systolic 105–148; BP diastolic 67–105; PULSE 51–92; RESP 14–18; TEMP 36.1–36.6; O2SAT 93–97; BMI 31.4
--- NOTE | 2024-08-12 11:31 | PCM.PRE.AN2 ---
ASA Classification* ASA Classification ASA Classification: 2 Assessment & Plan Anesthesia* Anesthesia Assessment Anesthesia Assessment: Discussed sedation and/or anesthesia options, risks, benefits, and alternatives with patient/parents/legal guardian/POA. Questions invited. The patient/parents/legal guardian/POA seems to understand and agrees to proceed with anesthesia plan. Reviewed the physical assessment, medical history, allergy history and patient home medications list prior to surgery/procedure/anesthetic and documented any changes. Performed airway and anesthesia risk assessments. Anesthesia Type Anesthesia Type: General Anesthesia Focused Assessment* Airway Assessment Mouth opens: >3 cm Mallampati Score: II Focused Labs Anesthesia Preop lab: CBC WBC 8.4 K/mm3 (4.4-11.0) 08/04/24 08:07 RBC 5.48 M/mm3 (4.6-6.2) 08/04/24 08:07 Hgb 16.7 g/dL (13.0-16.5) H 08/04/24 08:07 Hct 50.8 % (40-54) 08/04/24 08:07 Plt Count 222 K/mm3 (150-450) 08/04/24 08:07 CHEMISTRY Potassium 4.5 mmol/L (3.5-5.1) 01/21/19 07:35 Sodium 142 mmol/L (136-145) 01/21/19 07:35 BUN 14 mg/dL (7-18) 01/21/19 07:35 Creatinine 1.11 mg/dL (0.70-1.30) 01/21/19 07:35 Glucose 119 mg/dL (74-106) H 01/21/19 07:35 TSH 0.84 uIU/mL (0.358-3.74) 05/07/12 09:35 COAG Pre-Assessment Diagnosis/Proposed Procedure Planned Operative Procedure(s): OPEN UMBILICAL HERNIA REPAIR POSS MESH Anesthesia History Anesthesia History - industrial fabric cutter: Anesthesia History - industrial fabric cutter Hx Hospitalization No 08/03/24 11:43 Any Problems With Anesthesia No 08/03/24 11:43 Cholinesterase deficiency No 08/03/24 11:43 You/Your Family Experience No 08/03/24 11:43 fever (hyperthermia) with Relationship Recent Exposure to Contagious No 04/14/24 07:03 Disease Does patient have nerve No 08/03/24 11:43 stimulator Patient instructed to have device shut off --Does patient have Pacemaker or ICD? When Was Last Pacemaker Check QUESTION #4 FULL TEXT: You/Your Family Experience fever (hyperthermia) with Anesthesia Last Oral Intake Last Oral intake: Last Oral Intake NPO since Meds taken in AM with sips of water? Meds patient instructed to take am of surgery PONV PONV - industrial fabric cutter: PONV - industrial fabric cutter Female No 08/03/24 11:43 HX of Motion Sickness No 08/03/24 11:43 HX of N/V After Surgery No 08/03/24 11:43 Non-Smoker Yes 08/03/24 11:43 Duration of Surgery greater No 08/03/24 11:43 than 60 minutes Number of Risk Factors 1 08/03/24 11:43 PONV Score Low Risk 08/03/24 11:43 Height & Weight Height & Weight: Anesthesia: Height & Weight Height 6 ft 2 in 07/01/24 08:14 Respiratory Assessment Respiratory Assessment - industrial fabric cutter: Respiratory Tract Infection Hx - industrial fabric cutter Hx Respiratory Tract Infection No 08/03/24 11:43 STOP Sleep Apnea STOP Sleep Apnea - industrial fabric cutter: STOP Sleep Apnea - industrial fabric cutter Hx Hypertension No 08/03/24 11:43 Hx Sleep Apnea No 08/03/24 11:43 CPAP BIPAP Do you snore loudly (louder Yes 08/03/24 11:43 than talking or can be heard Do you often feel tired/ No 08/03/24 11:43 fatigued/ sleepy during daytime? Has anyone observed you stop No 08/03/24 11:43 breathing during sleep? STOP Results Negative 08/03/24 11:43 QUESTION #5 FULL TEXT : Do you snore loudly (louder than talking or can be heard through closed doors)? Tobacco Use History Tobacco Use History - industrial fabric cutter: Tobacco Use History - industrial fabric cutter Tobacco Use Smoking Status Never smoker 08/03/24 11:43 Hx Tobacco Use No 08/03/24 11:43 Years Smoking Packs Smoked per Day Smoking Cessation Date was within the last 15 years Hx Smoking Cessation Date Hx Smoking Cessation Counseling Hematologic Medial History Hematologic Hx - industrial fabric cutter: Hematologic Medical Hx - rug cleaner helper Hx of Blood Transfusion No 08/03/24 11:43 Hx of Transfusion in last 3 No 08/03/24 11:43 Months Date of Last Transfusion (if within last 3 months) Ever experience any problems No 08/03/24 11:43 with transfusion(s)? Specify any problems Hx of Preganancy in last 3 N/A 08/03/24 11:43 Months Nurse Filling Out Transfusion DSCHRIBER 08/03/24 11:43 & Questions: Date: 08/03/24 08/03/24 11:43 Time: 11:44 08/03/24 11:43 Patient unable to answer at this time (ie. confused, unrespo /Reproduction History /Reproductive History - industrial fabric cutter: /Reproductive Hx- industrial fabric cutter Hx Now Gestational Age (in weeks): EDC: Hx Hx Para Hx Section SAB No 08/03/24 11:43 Active Medications Active Medications: Current Medications Generic Name Dose Route Start Last Admin Trade Name Freq PRN Reason Stop Dose Admin Cefazolin Sodium 2 gm/ N/A 20 mls @ 400 mls/hr 08/12/24 12:55 IV 08/12/24 12:57 PREOP ONE Sodium Chloride 1,000 mls @ 15 mls/hr 08/12/24 11:20 IV 08/18/24 00:39 .Q48H LESLIE Protocol PFSH Medical History Wears contact lenses Alcohol use Low iron History of IBS Non-smoker History of pain when walking History of edema History of stress test Hemochromatosis carrier Elevated ferritin level Squamous cell skin cancer Vitamin D deficiency GERD (gastroesophageal reflux disease) Liver fibrosis Fatty liver Arthritis Pre-diabetes Allergic rhinitis Basal cell carcinoma of head Basal cell carcinoma of back Mitral valve prolapse Home Medications ?Medication ?Instructions ?Recorded ?Last Taken ?Type empagliflozin 10 mg tablet 10 mg PO QDAY 07/01/24 07/29/24 History (Jardiance) omeprazole 20 mg capsule,delayed 20 mg PO DAILY 08/03/24 Unknown History release Allergy/AdvReac Type Severity Reaction Status Date / Time No Known Allergies Allergy Verified 08/12/24 11:27 Family History Father CAD (coronary artery disease) Blood disorder Diabetes Sister Thyroid disorder Brother Cancer Melanoma Mother Atrial fibrillation Hyperlipidemia Hypothyroid Hypercholesteremia Osteoarthritis Grandmother CVA (cerebral vascular accident) CAD (coronary artery disease) Other Heart disease Surgical History History of esophagogastroduodenoscopy (EGD) History of tympanostomy tube placement Hx of tonsillectomy Social History Smoking Status: Never smoker alcohol intake: current alcohol intake frequency: holidays/special occasions only substance use type: does not use caffeine: Yes Type: carbonated beverages and coffee Review of Systems (Anesthesia) ROS Narrative System reviewed and no additional complaints, except as documented.
[2024-08-12] MEDS: 0.9% Normal Saline (1000mL) 1,000 ML 15 ML IV (11:37)
--- NOTE | 2024-08-12 11:55 | HP.PCM_ITS ---
History and Physical Date of Admission: 08/12/24 Intake Vital Signs 04/14/2407:03 07/01/2408:14 Height 6 ft 2 in 6 ft 2 in Weight: 239 lb BMI 30.7 BP 145/89 H Blood Pressure Location Rt brachial Position Sitting Respiration 16 Intake Visit Reasons: DISCUSS HERNIA SURGERY Chief Complaint: hernia update &P Bottle House Pumper Required: No Is patient in pain?: No Allergies No Known Allergies Allergy (Verified 07/01/24 08:14) Medications ?Medication ?Instructions ?Recorded ?Confirmed ?Type omeprazole 20 mg capsule,delayed 20 mg PO DAILY 02/17/24 04/10/24 History release empagliflozin 10 mg tablet 10 mg PO QDAY 07/01/24 07/01/24 History (Jardiance) Have you fallen in the past year?: No PFSH Medical History Wears contact lenses Alcohol use Low iron History of IBS Non-smoker History of pain when walking History of edema History of stress test Hemochromatosis carrier Elevated ferritin level Squamous cell skin cancer Vitamin D deficiency GERD (gastroesophageal reflux disease) Liver fibrosis Fatty liver Arthritis Pre-diabetes Allergic rhinitis Basal cell carcinoma of head Basal cell carcinoma of back Mitral valve prolapse Surgical History History of tympanostomy tube placement Hx of tonsillectomy Family History Father CAD (coronary artery disease) Blood disorder DiabetesSister Thyroid disorderBrother Cancer MelanomaMother Atrial fibrillation Hyperlipidemia Hypothyroid Hypercholesteremia OsteoarthritisGrandmother CVA (cerebral vascular accident) CAD (coronary artery disease)Other Heart disease Social History Smoking Status: Never smoker alcohol intake: current alcohol intake frequency: holidays/special occasions only substance use type: does not use caffeine: Yes Type: carbonated beverages and coffee HPI HPI HPI: Patient is a 49-year-old male here for umbilical hernia. Is been there for several years. He would like it repaired this winter when he has time to be down. ROS General General: Yes fatigue; No weight change, appetite, colon cancer, breast cancer or weakness HEENT HEENT: No difficulty swallowing, eye injury, eye surgery, swollen glands or hoarseness Endo Endocrine: Yes diabetes mellitus; No thyroid disease, thyroid cancer, Hair loss, heat intolerance or cold intolerance Skin Skin: No rash or changing moles Musc Musculoskeletal: No back problems, arthritis, rheumatoid arthritis, gout or joint pain Cardio Cardiovascular: No murmur, pacemaker, heart disease, atrial fibrillation, high blood pressure, heart attack, heart stent, palpitations, shortness of breat with exertion or chest pain Psych Psychiatric: No depression, anxiety or hearing voices Resp Respiratory: Yes shortness of breath, No sleep apnea, Yes cough, No COPD, No asthma, No emphysema and No wheezing Gastro Gastrointestinal: Yes abdominal pain, No nausea or vomiting, Yes diarrhea, Yes constipation, Yes blood in stool, Yes acid reflux, No hemorrhoids, No ulcers, No gallbladder problem and No black,tarry stools Tc Hematologic: No blood thinners, No blood disorders, No bleeding, No anemia and No blood clots Neuro Neurologic: No system reviewed and no additional complaints, except as documented, No as per HPI, No abnormal gait, No abnormal hearing, No abnormal movements, No abnormal speech, No behavioral changes, No burning sensations, No confusion, No convulsions, No disequilibrium, No dizziness, No localized weakness, No frequent falls, No headache(s), No lack of coordination, No loss of vision, No memory loss, No numbness, No other visual disturbances, No radicular pain, No restless legs, No sensory deficit, No syncope, No tingling, No tremor(s), No weakness and No other Exam Const General: cooperative Orientation: alert and oriented x3 HENMT Head: normal to inspection Neck Neck: normal visual inspection and full ROM Chest Chest palpation & inspection: normal inspection of the chest Resp Effort & Inspection: normal respiratory effort Auscultation: clear to auscultation bilaterally Cardio Rate: regular rate Rhythm: regular rhythm GI Inspection: non-distended Palpation: soft, hernia umbilical and nontender Skin General: no rashes or lesions noted Neuro General: patient alert and patient oriented x3 Extrem General: full ROM Psych Appearance: grossly normal Mental Status: mental status grossly normal Assessment and Plan Assessment and Plan (1) Umbilical hernia: Status: Acute Qualifiers: Obstruction and gangrene presence: without obstruction or gangrene Qualified Code(s): K42.9 - Umbilical hernia without obstruction or gangrene Plan: The patient has umbilical hernia which I was not able to fully reduce. It seems like it is containing fat. It may be less than 1 cm but it is close. I discussed umbilical hernia repair with possible mesh if it is over 1 cm. I discussed the risks of the procedure such as bleeding, infection, injury underlying organs. Patient understands the risks and is wanted proceed. I also explained the possibility of mesh infection. Hoang Sánchez MD Pager: [facility] [address] [place] [address], [address] [place] [address] Office: I have examined the patient and the H&P has been reviewed. There are no clinical changes since date of exam.
[2024-08-12] MEDS: Cefazolin 2 GM in Syringe IV (12:06)
[2024-08-12] MEDS: Bupivacaine Mpf 0.5% 30 ML VIAL (12:36)
--- NOTE | 2024-08-12 12:47 | PCM.POST.ANE ---
Anesthesia: Postop Eval I Current Vital Signs Temperature: 97.2 F Pulse Rate: 92 Blood Pressure: 132/95 Respiratory Rate: 16 Pulse Ox: 95 Oxygen Delivery Method: Room Air Assessment Airway patent: Yes Spontaneous unlabored respirations: Yes Mental status: Awake and Calm nausea: No Vomiting: No Anesthesia Complication: No Fluid Hydration Crystalloid volume administer (ml): 600 Total IV fluid infused: 600 Progress Note Anesthesia document: Postop Eval 1 completed: Yes
--- NOTE | 2024-08-12 12:57 | PCM.OPRPT ---
Operative Report (Standard) Operative Information Date of Procedure: 08/12/24 Pre-Operative Diagnosis: Umbilical hernia Post-Operative Diagnosis: Umbilical hernia Surgery/Procedure Performed: Umbilical hernia repair analytical lead: Yes Marketing Communications Assistant: Merly Schwartz Tasks completed by first coat sander: Opening, Closing and Retracting Type of Anesthesia: General/Regional RN Documented Start/Stop Times: Operation Date: 08/12/24 13:25 Case Time Into Pre-Op 08/12/24 11:16 Out of Pre-Op 08/12/24 12:03 Anesthesia Start 08/12/24 12:04 Into Room 08/12/24 12:04 Procedure Start 08/12/24 12:22 Procedure End 08/12/24 12:37 Procedure Start Time: : Procedure Stop Time: : Select all DRAINS/GRAFTS/IMPLANTS that apply: None Estimated Blood Loss: 5 Specimen collected: Yes Description of specimen(s) removed: Hernia sac Description of surgery: Patient was brought to the operating room and general anesthesia was induced. The abdomen was prepped draped in usual sterile fashion. A curvilinear incision was marked and injected with local anesthetic superior to the umbilicus. Incision was made in the incision was deepened down to the hernia sac. The hernia sac was dissected off of the umbilical stalk. It was reduced. The edges of the fascia were cleaned. The defect was approximately 1 cm. It was closed with 2 Nurolon sutures. The cavity was irrigated and suctioned dry. The skin was closed with interrupted 3-0 Vicryl sutures and Steri-Strips. Dressing was applied. Patient tolerated the procedure well and was brought to PACU in stable condition. Surgical Findings: Small umbilical hernia, 1 cm Complications Complications: No Admit VTE Documentation VTE Mechan Device Prophylaxis: SCD's
--- NOTE | 2024-08-12 13:01 | EX.PCM.DISCH ---
Discharge Instructions Procedure Hernia Diet Discharge Diet: Light diet - advance as tolerated Activity Discharge Activity: May Not Drive (for 2-3 days or while taking narcotic pain meds.) and May Shower (with the bandage in place 1-2 days after surgery.) Lifting Restrictions: 20 pounds for 4 weeks. Additional Activity Instructions:: Climbing stairs is fine, walking is encouraged. Sitting in bed may be uncomfortable. Sitting up using your lateral muscles (sitting up sideways) is usually more comfortable. Do not drive, work heavy equipment of sign legal documents for 24 hours. Pain medications may cause nausea, you should typically eat light foods as you take your pain medications. Pain medications may also cause constipation. If you have difficulty with this, discuss with your doctor. Alternate ibuprofen and Tylenol for pain control, oxycodone for breakthrough pain. Zofran for nausea. Take Colace to prevent constipation Resume Jardiance tomorrow Dressing / Incision Call your doctor if your incision/area has: Continuous Slow Oozing, Sudden Increased Bleeding, Increased Pain/ Swelling, Increased Redness and Foul Smelling Discharge Call your doctor if you observe: Fever of 101 or Higher Suture Line Care: Avoid Pulling/Pushing and Avoid Pinching/Bending Remove Dressing in: 2 days (Remove clear bandages in 2 days, remove Steri-Strips in 7 to 10 days.) Cleanse incision/area with: Soap & Water Follow Up Care Please Follow Up With: Hoang Sánchez MD When: Please call to schedule 2 week follow up appointment. [phone] Test Results: Test results from this visit will be discussed in further detail at your follow-up appointment, if applicable. Discharge Plan Admission Attending Provider: Hoang Sánchez Primary Care Provider: Paula Irvin Instructions Print Language: Sammarinese Discharge Orders/Prescriptions Prescriptions: New ondansetron 4 mg Tablet,Disintegrating 8 mg PO Q8H PRN PRN (Reason: NAUSEA/VOMITING) 5 Days Qty: 10 0RF oxycodone 5 mg Tablet 5 - 10 mg PO Q4H PRN PRN (Reason: Pain Score 4-10) 5 Days Qty: 14 0RF No Action Jardiance 10 mg tablet 10 mg PO QDAY omeprazole 20 mg capsule,delayed release(DR/EC) 20 mg PO DAILY Referrals / Follow Up: Fast,Paula, DO [Primary Care Provider] - Disposition Disposition (needs filled in before D/C Order can be placed): Home, Self Care
--- NOTE | 2024-08-12 13:25 | HERN_PTH ---
PATIENT: JESI GAVIRIA [place] [facility] [id number] AGE/SX: 49/M ROOM: RE08/12/[address]: Dr. Hoang Sánchez MD : 1975 BED: DIS: 08/12/2024 SPEC #: [id number] RECD: 08/13/24 07:39 STATUS: VITA REQ #: [id number] MICHAEL: 08/12/24 13:[address]: Hoang Sánchez DEPT: SURGICAL PATHOLOGY RECD BY: Annel Cruz ENTERED: 08/13/24 12:09 SP TYPE: Hernia OTHR DR: Dr. Paula Irvin, DO Tissues: HERNIA Procedures: Surgery Specimen Level II HEADER OPERATION: Hernia, open umbilical repair poss mesh PRE-OP DIAGNOSIS: Umbilical hernia TISSUE SUBMITTED: Hernia sac MICROSCOPIC DIAGNOSIS Hernia sac: A fragment of fibroadipose and fibroconnective tissue, consistent with hernia sac. SJ.mr 08/14/2024 MICROSCOPIC DESCRIPTION Slides are reviewed. GROSS DESCRIPTION Received in fixative is one container labeled with the patient's name and designated Hernia sac. The specimen consists of an irregular piece of pink congested soft tissue measuring 3.5 x 1.5 x 0.3cm. The entire specimen is submitted in one cassette. 08/13/2024 TC:5 CPT:[id number]
--- NOTE | 2024-08-12 17:46 | PCM.POSTANE2 ---
Anesthesia Postop Eval I Sum Postop Eval Completion status Anesthesia document: Postop Eval 1 completed: Yes Anesthesia Postop Eval I Summary Anesthesia Postop Eval I Summary: Anesthesia Postop Eval I: Assessment Summary Airway patent Yes 08/12/24 17:46 Spontaneous unlabored Yes 08/12/24 17:46 respirations Mental status Awake,Calm 08/12/24 17:46 nausea No 08/12/24 17:46 Vomiting No 08/12/24 17:46 Anesthesia Postop Eval I: Fluid Summary Crystalloid volume administer 600 08/12/24 17:46 (ml) Colloids volume administered ( ml) Blood Product volume administered (ml) Total IV fluid infused 600 08/12/24 17:46 Anesthesia Postop Eval I: Summary Notes Anesthesia Complication No 08/12/24 17:46 Anesthesia Complication Comment: Post-operative progress note Anesthesia: Postop Eval II Evaluation Mental status: Awake and Calm Pain Level: 0 nausea: No Vomiting: No Complications Anesthesia Complication: No
== END 2024-08-12 15:44 | disposition home or self-care (01) ==
LOC: SDC 10:57 → AC 10:58
PROVIDERS: Anesthesiology; PCP Internal Medicine; Referring Provider Surgery; Visit Provider Surgery
PROC: (CPT 49591; principal; 2024-08-12 13:10)
DX: K42.1 Umbilical hernia with gangrene (principal); K21.9 Gastro-esophageal reflux disease without esophagitis; R73.03 Prediabetes; Z79.84 Long term (current) use of oral hypoglycemic drugs
CPT/HCPCS: 49591; 00830; 36415; 85027; 88302; 93005; J2405

== ENCOUNTER → 2024-09-17 | Outpatient (CLI) | payer OTHER, SELFPAY ==
--- NOTE | 2024-09-17 07:36 | US_ITS ---
STUDY: ABDOMINAL ULTRASOUND - RIGHT UPPER QUADRANT; ELASTOGRAPHY REASON FOR VISIT: Male, 49 years old. Hepatic fibrosis. TECHNIQUE: Ultrasound evaluation of the right upper quadrant was performed with real-time and static ramirez-scale imaging. Point quantification shear wave elastography was performed ([id number]). TECHNICAL QUALITY: Adequate. COMPARISON: Comparison is made with prior study January 25, 2023. FINDINGS: Liver: The liver is enlarged at measures 18.2 cm. There is increased echogenicity consistent with fatty infiltration. The bile ducts are within normal limits. There is hepatic color flow. The direction of portal flow is hepatopetal. There is no demonstrated mass lesion. Median liver stiffness measured 13.2 kPa. Gallbladder: Normal distended gallbladder. The gallbladder wall measures 2.0 mm. There is a negative sonographic Bran''s sign. There is no pericholecystic fluid. There are no gallstones. Common Bile Duct (C.B.D.): The common bile duct measures 4 mm. Pancreas: Limited visualization due to overlying bowel gas. Right Kidney: Normal size of the right kidney. The right kidney measures 10.5 cm x 5.6 x 4.5 cm. Normal renal cortex. The right cortex measures 1. cm. There is no demonstrated renal mass or cyst. There is no right hydronephrosis. US/ABD Limited w/ Elastography IMPRESSION: 1. Liver stiffness measures 13.2 kPa compatible with F3-F4 (Moderate to severe liver fibrosis) Metavir score. Electronically Signed: Raymond Dorantes MD at 11:35 EST ,
== END | disposition home or self-care (01) ==
PROVIDERS: PCP Internal Medicine; Referring Provider Internal Medicine; Visit Provider Internal Medicine
DX: K74.00 Hepatic fibrosis, unspecified (principal)
CPT/HCPCS: 76705; 76981